=== PATIENT | male | born 1955 | race Hispanic/Latino ===

== ENCOUNTER 2020-11-26 14:01 | Inpatient (IN) | payer SELFPAY ==
[~2020-11-26] VITALS: Ht 167.6 cm; Wt 81.9 kg
[2020-11-26 14:18] VITALS: BP 141/79
[2020-11-26] MEDS ORDERED: CEPHALEXIN 500 MG CAPSULE PO ONE (15:30)
[2020-11-26] MEDS ORDERED: TETANUS/DIPHTHERIA TOXOID [ADULT] 0.5 ML VIAL IM ONE (15:30)
[2020-11-26] MEDS ORDERED: HYDROCODONE/ACETAMINOPHEN 7.5/325 MG TAB PO ONE (15:30)
[2020-11-26 18:12] VITALS: BP 139/79
[2020-11-26 19:39] VITALS: BP 147/66
[2020-11-26] MEDS: MORPHINE 2 MG SYG IVP PRN (23:10)
[2020-11-27] VITALS (16 sets, daily range): BP systolic 95–120; BP diastolic 56–79
[2020-11-27] MEDS ORDERED: LEVO75 PO (02:40)
[2020-11-27] MEDS ORDERED: EZET10TA13 PO (02:40)
[2020-11-27] MEDS: MORPHINE 2 MG SYG IVP PRN ×2 (03:50→12:17)
[2020-11-27 05:17] LABS: INR 1.02 (0.85-1.15); PROTHROMBIN TIME 11.1 SEC (9.6-11.6)
[2020-11-27 05:19] LABS: PARTIAL THROMBOPLASTIN TIME 27.1 SEC (26.3-35.5)
[2020-11-27] MEDS ORDERED: LIDOCAINE PF 100MG/5ML (2%) SYRINGE 5ML ONE (15:27)
[2020-11-27] MEDS ORDERED: DEXAMETHASONE SOD PHOSPHATE 10MG/ML 1ML VIAL ONE (15:28)
[2020-11-27] MEDS ORDERED: PROPOFOL 10 MG/ML 20ML VIAL IV ONE (15:28)
[2020-11-27] MEDS ORDERED: MIDAZOLAM HCL 1 MG/ML 2ML VIAL ONE (15:28)
[2020-11-27] MEDS ORDERED: FENTANYL CITRATE PF 50 MCG/1 ML 2ML VIAL ONE (15:28)
[2020-11-27] MEDS ORDERED: ONDANSETRON 4MG INJ ONE (15:28)
[2020-11-27] MEDS ORDERED: MEPERIDINE-PF 25 MG/ML SYG ONE (15:32)
[2020-11-27] MEDS ORDERED: CEFAZOLIN SODIUM 1 GM VIAL ONE ×2 (15:50→15:54)
[2020-11-27] MEDS ORDERED: ACET1TAB25 PO (19:31)
[2020-11-27] MEDS ORDERED: CEPH500B PO (19:31)
== END 2020-11-27 19:57 | disposition home or self-care (01) | DRG 514 ==
LOC: EDBD 14:01 → EDH 14:01 → OBSVTOIN 14:02 → EDHIP 14:02 → 4BH 11-27 03:00
PROVIDERS: ADMIT Surgery Plastic and Reconstructive Surgery; ATTEND Surgery Plastic and Reconstructive Surgery
PROC: 0XM Anatomical Regions, Upper Extremities, Reattachment (ICD-10-PCS; principal; 2020-11-27 15:30)
PROC: 3E0234Z Introduction of Serum, Toxoid and Vaccine into Muscle, Percutaneous Approach (ICD-10-PCS; 2020-11-27 15:30)
DX: S62.637A Displaced fracture of distal phalanx of left little finger, initial encounter for closed fracture (principal); W23.0XXA Caught, crushed, jammed, or pinched between moving objects, initial encounter; Y93.89 Activity, other specified; Y92.89 Other specified places as the place of occurrence of the external cause; Y99.8 Other external cause status; Z23 Encounter for immunization
CPT/HCPCS: 36415; 73130; 85610; 85730; 90714; A4565; C1713; G0378; J0690; J1100; J2001; J2175; J2250; J2405; J2704; J3010

== ENCOUNTER → 2024-06-21 | Outpatient (CLI) | payer OTHER ==
[~2024-06-21] MED LIST: ACET-2079 PO; CEPH500B PO; EZET10TA81 PO; LEVO75 PO
--- NOTE | 2024-06-21 14:04 | HMCIMG ---
CT CORONARY CALCIFICATION SCORING: Anatomic images were reviewed. The calcium score is being generated and reported separately. This report is for the visualized anatomy only. Visualized portions of the lungs are clear. Hilar and mediastinal structures appear normal. Osseous structures are unremarkable. Impression: 1. Negative noncardiac anatomic findings. 2. The calcium score is 80 consistent with a mild degree of calcified plaque. This is 40 is percentile for a patient this age. CT was performed with one or more following dose reduction techniques: automated exposure control, adjustment of the mA and kv according to patient's size, or use of a iterative reconstruction technique.
== END | disposition home or self-care (01) ==
LOC: RAH 13:07
PROVIDERS: ATTEND Internal Medicine Cardiovascular Disease
DX: Z13.6 Encounter for screening for cardiovascular disorders (principal)
CPT/HCPCS: 75571